=== PATIENT | male | born 2000 | race Caucasian/White ===

== ENCOUNTER 2021-01-28 21:41 | Emergency (ER) | payer SELFPAY ==
[2021-01-28] MEDS ORDERED: diphenhydrAMINE 50 MG/ML SDV IVPUSH ONE (21:52)
[2021-01-28] MEDS ORDERED: methylPREDNISolone Sodium Succinate 125 MG/2 ML SDV IVPUSH ONE (21:52)
[2021-01-28] MEDS ORDERED: EPINEPHrine 1 MG/1 ML Amp IM ONE (21:53)
--- NOTE | 2021-01-28 23:11 | EDM.PDOC ---
ED HPI GENERAL MEDICAL PROBLEM - General Chief Complaint: Allergic Reaction Stated Complaint: ALERGIC REACTION THROAT Time Seen by Provider: 01/28/21 22:10 Source of Information: Reports: Patient, RN History Limitations: Reports: No Limitations - History of Present Illness INITIAL COMMENTS - FREE TEXT/NARRATIVE: ED with c/o allergic reaction with rash and SOB after eating something that had dairy in it. Reported he had asked previously if anything dairy in ingredients and was told no. 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 Did not have Epi pen avilable so came to ED. - Related Data Allergies Allergy/AdvReac Type Severity Reaction Status Date / Time Dairy Products Allergy Anaphylactic Verified 01/28/21 22:04 Shock Home Meds: Home Meds . [No Known Home Meds] 01/28/21 [History] Past Medical History - Past Health History Medical/Surgical History: Denies Medical/Surgical History Social & Family History - Tobacco Use Tobacco Use Status *Q: Never Tobacco User Second Hand Smoke Exposure: No - Recreational Drug Use Recreational Drug Use: No ED ROS ALLERGIC REACTION - Review of Systems Review Of Systems: Comprehensive ROS is negative, except as noted in HPI. ED EXAM GENERAL NO PERIP PULSE - Physical Exam Exam: See Below Exam Limited By: No Limitations General Appearance: Alert, Mild Distress Ears: Normal External Exam Nose: Normal Inspection Throat/Mouth: Normal Inspection Head: Atraumatic, Normocephalic Neck: Full Range of Motion Respiratory/Chest: Decreased Breath Sounds, Wheezing (faint end phase) Cardiovascular: Normal Peripheral Pulses, Regular Rate, Rhythm, Tachycardia GI/Abdominal: Normal Bowel Sounds, Soft Back Exam: Normal Inspection Extremities: Normal Inspection Neurological: Alert, Oriented, Normal Cognition Psychiatric: Anxious Skin Exam: Warm, Dry, Intact, Rash (hive upper extremities, face flushed mild swelling to face.) Course - Vital Signs Last Recorded V/S: Last Vital Signs Temp 98.6 F 01/28/21 22:05 Pulse 130 H 01/28/21 22:05 Resp 24 H 01/28/21 22:05 BP 116/62 01/28/21 22:05 Pulse Ox 95 01/28/21 22:05 - Orders/Labs/Meds Meds: Medications Discontinued Medications Generic Name Dose Route Start Last Admin Trade Name Freq PRN Reason Stop Dose Admin Diphenhydramine HCl 25 mg 01/28/21 21:52 01/28/21 21:57 Diphenhydramine 50 Mg/Ml Sdv IVPUSH 01/28/21 21:53 25 mg ONETIME ONE Administration Epinephrine HCl 0.3 mg 01/28/21 21:53 01/28/21 21:57 Epinephrine 1 Mg/1 Ml Amp IM 01/28/21 21:54 0.3 mg ONETIME ONE Administration Methylprednisolone Sodium Succinate 125 mg 01/28/21 21:52 01/28/21 21:57 Methylprednisolone Sodium Succinate 125 Mg/2 Ml Sdv IVPUSH 01/28/21 21:53 125 mg ONETIME ONE Administration Prednisone Confirm 01/28/21 23:15 Prednisone 20 Mg Tab Administered 01/28/21 23:16 Dose 20 mg .ROUTE .STK-MED ONE - Re-Assessments/Exams Free Text/Narrative Re-Assessment/Exam: Sx improved. Departure - Departure Time of Disposition: 23:07 Disposition: Home, Self-Care 01 Condition: Good Clinical Impression: Allergic reaction - Discharge Information *PRESCRIPTION DRUG MONITORING PROGRAM REVIEWED*: No *COPY OF PRESCRIPTION DRUG MONITORING REPORT IN PATIENT DANIAL: No Instructions: Anaphylactic Reaction, Adult Referrals: PCP,None [Primary Care Provider] - Forms: ED Department Discharge Additional Instructions: benadryl 25mg one every 4 hours x 24 hours then as needed prednisone 20mg in am urgent follow up if breathing difficulty, swelling or itching returns Sepsis Event Note (ED) - Evaluation Sepsis Screening Result: No Definite Risk - Focused Exam Vital Signs: Vital Signs Temp Pulse Resp BP Pulse Ox 01/28/21 22:05 98.6 F 130 H 24 H 116/62 95
[2021-01-28] MEDS ORDERED: predniSONE 20 MG Tab ONE (23:15)
== END 2021-01-28 23:23 | disposition home or self-care (01) ==
LOC: DL.ED 21:41
DX: L50.0 Allergic urticaria (principal); Z91.011 Allergy to milk products
CPT/HCPCS: 96372; 96374; 96375; 99284; J0171; J1200; J2930